=== PATIENT | female | born 1965 | race Caucasian/White ===

== ENCOUNTER 2023-03-23 12:27 | Outpatient (CLI) | payer OTHER, SELFPAY ==
--- NOTE | ~2023-03-23 | XR_ITS ---
XR foot LT standing 2V DATE: 03/23/2023 13:16 INDICATION: Osteoarthritis TECHNIQUE: Standing AP and lateral views COMPARISON: None FINDINGS: There is prominent plantar calcaneal enthesopathy without erosive change or periostitis. No fracture, dislocation, periosteal reaction or bone destruction. No erosive change. IMPRESSION: Plantar calcaneal enthesopathy Reviewed, dictated and finalized at location B.
--- NOTE | ~2023-03-23 | XR_ITS ---
XR hand BI arthritis min 3V DATE: 03/23/2023 13:16 INDICATION: Osteoarthritis TECHNIQUE: 4 views of each hand COMPARISON: None FINDINGS: Benign cystic change of the left distal ulna and navicular and capitate and trapezium bones . Mild osteoarthritis at the left first carpometacarpal joint. No fracture or dislocation, periosteal reaction or bone destruction or erosive change or chondrocalci nosis. IMPRESSION: Mild osteoarthritic changes Reviewed, dictated and finalized at location B. IMPRESSION: Mild osteoarthritic changes
--- NOTE | ~2023-03-23 | XR_ITS ---
XR foot RT standing 2V DATE: 03/23/2023 13:16 INDICATION: Osteoarthritis TECHNIQUE: Standing AP and lateral views of right foot COMPARISON: None FINDINGS: Prominent plantar calcaneal enthesopathy without erosive change or periostitis. No fracture, dislocation, periosteal reaction or bone destruction or erosive change is noted. IMPRESSION: Plantar calcaneal enthesopathy Reviewed, dictated and finalized at location B.
[2023-03-23 14:39] LABS: Rheumatoid Factor < 12.0 IU/ML (<12)
[2023-03-26 12:33] LABS: Anti Cyclic Citrullinated Pept <16 Units (<20)
[2023-03-27 10:51] LABS: SS-A <1.0; SS-B <1.0
== END 2023-03-23 12:28 | disposition home or self-care (01) ==
PROVIDERS: Visit Provider Internal Medicine
DX: Z71.89 Other specified counseling (principal); Z79.899 Other long term (current) drug therapy; M19.041 Primary osteoarthritis, right hand; M19.042 Primary osteoarthritis, left hand; M77.31 Calcaneal spur, right foot; M77.32 Calcaneal spur, left foot
CPT/HCPCS: 36415; 73130; 73620; 86200; 86235; 86430